=== PATIENT | female | born 1945 | race Caucasian/White ===

== ENCOUNTER 2016-09-30 13:15 | Emergency (ER) | payer MEDICARE, MEDICAID ==
--- NOTE | 2016-09-30 15:03 | RAD ---
INDICATION: Intracranial injury COMPARISON: MRI brain April 07, 2014 TECHNIQUE: Noncontrast axial source images were acquired from the skull base to the vertex. FINDINGS: Ventricles/sulci: There is cortical atrophy with compensatory dilatation of the CSF spaces. Brain parenchyma: There is no acute focal parenchymal finding, evidence of intracranial mass, or intracranial mass effect. There is encephalomalacia in the left cerebral hemisphere as described previously consistent with a remote infarct. Intracranial hemorrhage:None. Extra-axial spaces: There are no abnormal extra axial fluid collections or evidence of extra-axial mass. Calvarium: There is no calvarial fracture or other calvarial abnormality. Scalp: There is no evidence of scalp or extracalvarial soft tissue abnormality. Paranasal sinuses/mastoid: The paranasal sinuses and mastoid air cells are clear. Other: None. IMPRESSION: NO ACUTE INTRACRANIAL FINDINGS. REMOTE LEFT HEMISPHERIC CVA.
[2016-09-30 15:12] LABS: Hematocrit 44 % (35-47); Hemoglobin 14.3 g/dl (12.0-16.0); Mean Corpuscular HGB Conc 33 g/dl (31-36); Mean Corpuscular Hemoglobin 31 pg (27-31); Mean Corpuscular Volume 96 fL (80-97); Mean Platelet Volume 7 um3 (7.4-10.4); Red Cell Distribution Width 13 % (10.5-15); White Blood Count 16.4 10^3/ul (3.5-10.8)
[2016-09-30 15:30] LABS: Albumin 4.4 g/dL (3.2-5.2); BUN/Creatinine Ratio 16.3 (8-20); Calcium 9.5 mg/dL (8.6-10.3); EGFR African American 83.2 (>60); EGFR Non-African American 64.7 (>60); Globulin 2.9 g/dL (2-4); Magnesium 2.4 mg/dL (1.9-2.7); Potassium 3.9 mmol/L (3.5-5.0); Total Bilirubin 0.4 mg/dL (0.2-1.0); Total Protein 7.3 g/dL (6.4-8.9)
[2016-09-30 15:48] LABS: TSH (Thyroid Stimulating Horm) 1.88 mcIU/mL (0.34-5.60)
[2016-09-30] MEDS ORDERED: ALPRAZolam TAB* 0.5 MG PO ONE (16:02)
[2016-09-30 16:47] VITALS: BP 126/71
--- NOTE | 2016-09-30 17:24 | ED ---
Jenny Lynn Michael, scribed for Jakub Lundberg MD on 09/30/16 at 1420 . Adult Trauma - HPI Summary HPI Summary: 71 y/o female was BIBA to the ED after a unwitnessed fall that happened today at 1300. The pt's was bedside and reports that she had head trauma and hit her head on a table. The pt c/o diffuse MEEHAN. She presents with a right forehead laceration, right sided skin tear on her neck, and right occipital cephalohematoma. The pt cannot recall the fall. The PMHx is significant for dementia and CVA with resulting right sided deficits. - History of Current Complaint Chief Complaint: EDHeadInjury Stated Complaint: FALL Time Seen by Provider: 09/30/16 13:46 Hx Obtained From: Patient, Family/Dental Hygiene Instructor, EMS, Medical Records Hx From Patient Unobtainable Due To: Dementia Mechanism of Injury: Fall Loss of Consciousness: unsure Onset/Duration: Started Minutes Ago Onset of Pain: Immediate Onset Severity: Moderate Current Severity: Moderate Location: Head, Neck Associated Signs & Symptoms: Positive: Memory Loss, Other: - cephalohematoma, skin tear, and laceration - Allergy/Home Medications Allergies/Adverse Reactions: Allergies Allergy/AdvReac Type Severity Reaction Status Date / Time No Known Allergies Allergy Verified 12/14/14 10:25 PMH/Surg Hx/FS Hx/Imm Hx Endocrine/Hematology History: Denies: Hx Anticoagulant Therapy, Hx Diabetes Cardiovascular History: Denies: Hx Hypertension, Hx Pacemaker/ICD Sensory History: Denies: Hx Hearing Aid Neurological History: Reports: Hx CVA - with right sided deficits, Hx Dementia Psychiatric History: Reports: Hx Panic Disorder - ANXIETY - Surgical History Surgery Procedure, Year, and Place: APPENDECTOMY. DVT-GREEN FIELD FILTER, [facility] 05/03(1.5 T ONLY ) Infectious Disease History: No Infectious Disease History: Denies: Traveled Outside the [place] in Last 30 Days - Social History Occupation: Retired Lives: With Family Alcohol Use: None Substance Use Type: Reports: None Smoking Status (MU): Never Smoked Tobacco Review of Systems Negative: Fever Positive: Other - laceration. skin tear. cephalohematoma. Neurological: Other - memory loss. All Other Systems Reviewed And Are Negative: Yes Physical Exam Triage Information Reviewed: Yes Vital Signs On Initial Exam: Initial Vitals Temp Pulse Resp BP Pulse Ox 97.9 F 83 18 126/74 98 09/30/16 13:33 09/30/16 13:33 09/30/16 13:33 09/30/16 13:33 09/30/16 13:33 Vital Signs Reviewed: Yes Appearance: Positive: Well-Appearing, No Pain Distress Skin: Positive: Other - skin tear-right side of neck Head/Face: Positive: Scalp - right forehead laceration and, Cephalohematoma - right sided occipital Eyes: Positive: Normal ENT: Positive: Normal ENT inspection Neck: Positive: Supple, Nontender Respiratory/Lung Sounds: Positive: Clear to Auscultation, Breath Sounds Present Cardiovascular: Positive: RRR Abdomen Description: Positive: Nontender, Soft Bowel Sounds: Positive: Present Musculoskeletal: Positive: Normal Neurological: Positive: Normal Psychiatric: Positive: Affect/Mood Appropriate - [place] Coma Scale Coma Scale Total: 14 Procedures - Laceration/Wound Repair 1 Location: face Description: Linear Length, Depth and Shape: 1 cm Betadine Prep?: Yes Closure: Tamara #__ - 2 Diagnostics - Vital Signs Vital Signs Temp Pulse Resp BP Pulse Ox 09/30/16 13:33 97.9 F 83 18 126/74 98 - Laboratory Lab Results: Lab Results 09/30/16 09/30/16 09/30/16 Range/Units 15:04 15:04 15:04 WBC 16.4 H (3.5-10.8) 10^3/ul RBC 4.60 (4.0-5.4) 10^6/ul Hgb 14.3 (12.0-16.0) g/dl Hct 44 (35-47) % MCV 96 (80-97) fL MCH 31 (27-31) pg MCHC 33 (31-36) g/dl RDW 13 (10.5-15) % Plt Count 334 (150-450) 10^3/ul MPV 7 L (7.4-10.4) um3 Neut % (Auto) 90.5 H (38-83) % Lymph % (Auto) 5.3 L (25-47) % [place] % (Auto) 3.6 (1-9) % Eos % (Auto) 0.2 (0-6) % Baso % (Auto) 0.4 (0-2) % Absolute Neuts (auto) 14.8 H (1.5-7.7) 10^3/ul Absolute Lymphs (auto) 0.9 L (1.0-4.8) 10^3/ul Absolute Monos (auto) 0.6 (0-0.8) 10^3/ul Absolute Eos (auto) 0 (0-0.6) 10^3/ul Absolute Basos (auto) 0.1 (0-0.2) 10^3/ul Absolute Nucleated RBC 0 10^3/ul Nucleated RBC % 0 Sodium 138 (133-145) mmol/L Potassium 3.9 (3.5-5.0) mmol/L Chloride 103 (101-111) mmol/L Carbon Dioxide 28 (22-32) mmol/L Anion Gap 7 (2-11) mmol/L BUN 14 (6-24) mg/dL Creatinine 0.86 (0.51-0.95) mg/dL Est GFR ( Amer) 83.2 (>60) Est GFR (Non-Af Amer) 64.7 (>60) BUN/Creatinine Ratio 16.3 (8-20) Glucose 103 H (70-100) mg/dL Lactic Acid 1.0 (0.5-2.0) mmol/L Calcium 9.5 (8.6-10.3) mg/dL Magnesium 2.4 (1.9-2.7) mg/dL Total Bilirubin 0.40 (0.2-1.0) mg/dL AST 21 (13-39) U/L ALT 10 (7-52) U/L Alkaline Phosphatase 88 (34-104) U/L Troponin I 0.00 (<0.04) ng/mL Total Protein 7.3 (6.4-8.9) g/dL Albumin 4.4 (3.2-5.2) g/dL Globulin 2.9 (2-4) g/dL Albumin/Globulin Ratio 1.5 (1-3) TSH 1.88 (0.34-5.60) mcIU/mL Result Diagrams: 09/30/16 15:04 09/30/16 15:04 Lab Statement: Any lab studies that have been ordered have been reviewed, and results considered in the medical decision making process. - CT Brain CT CT Interpretation: No Acute Changes - NO ACUTE INTRACRANIAL FINDINGS. REMOTE LEFT HEMISPHERIC CVA. CT Interpretation Completed By: Radiologist - EKG EK EKG Rhythm: Sinus Bradycardia Ectopy: PVCs EKG Interpretation: diffuse nonspecific changes Adult Trauma Course/Dx - Course Course Of Treatment: The cause of Ms. Rousseau fall is unclear therefore a syncopal W/U was obtained and negative. CT brain was also negative for acute injury. She would not tolerate a careful closure of her forehead laceration but I was able to prep her a bit and put two tamara in. - Diagnoses Provider Diagnoses: Skin tear, Head injury, Facial laceration Discharge - Discharge Plan Condition: Stable Disposition: HOME Patient Education Materials: Head Injury (ED), Facial Laceration (ED) Referrals: Angel Luis Mart MD [Primary Care Provider] - Additional Instructions: The tamara will be taken out in one week. Please return to the ED if your symptoms worsen. The documentation as recorded by the Jenny roberto Michael accurately reflects the service I personally performed and the decisions made by , Jakub Lundberg MD.
== END 2016-09-30 16:45 | disposition home or self-care (01) ==
LOC: ED 13:15
DX: S01.81XA Laceration without foreign body of other part of head, initial encounter (principal); S11.91XA Laceration without foreign body of unspecified part of neck, initial encounter; S06.2X0A Diffuse traumatic brain injury without loss of consciousness, initial encounter; F03.90 Unspecified dementia, unspecified severity, without behavioral disturbance, psychotic disturbance, mood disturbance, and anxiety; W01.190A Fall on same level from slipping, tripping and stumbling with subsequent striking against furniture, initial encounter; Y93.9 Activity, unspecified; Y92.9 Unspecified place or not applicable
CPT/HCPCS: 12011; 36415; 70450; 80053; 83605; 83735; 84443; 84484; 85025; 93005; 99283; A9270-GY

== ENCOUNTER 2018-02-13 18:14 | Inpatient (IN) | payer MEDICARE, MEDICAID ==
--- NOTE | 2018-02-13 18:34 | ED ---
Neurological HPI - HPI Summary HPI Summary: 72 y/o female BIBA c/o multiple seizures today. PMHx seizures, 2008 hemorrhagic stroke. Pt has been under palliative care or udner a week. Decreased appetite starting four days ago. Intermittent bright yellow diarrhea for 2 days. PMHx dementia. Pt ell twice yesterday. - History of Current Complaint Chief Complaint: EDSeizure Stated Complaint: SEIZURES/AMS Hx Obtained From: Patient, Family/Embedded Software Engineer - daughter Onset/Duration: Sudden Onset Neurological Deficit Location: Generalized Pain Intensity: 0 Seizure Character: Generalized Aggravating: Nothing Alleviating: Nothing Associated Signs and Symptoms: Positive: Decreased Oral Intake, Diarrhea - Allergy/Home Medications Allergies/Adverse Reactions: Allergies Allergy/AdvReac Type Severity Reaction Status Date / Time No Known Allergies Allergy Verified 12/14/14 10:25 Home Medications: Home Medications Citalopram TAB* [CeleXA TAB*] 20 mg PO QAM 02/13/18 [History Confirmed 02/13/18] Gabapentin TAB(NF) [Neurontin 600 mg TAB(NF)] 600 mg PO BID 02/13/18 [History Confirmed 02/13/18] Lorazepam INTESNOL CONC.(NF) [Lorazepam Intensol (NF)] 2 mg PO Q6HR PRN [History Confirmed 02/13/18] QUEtiapine TAB* [Seroquel 25 MG TAB*] 25 mg PO BEDTIME 02/13/18 [History Confirmed 02/13/18] Sertraline* [Zoloft*] 25 mg PO DAILY 02/13/18 [History Confirmed 02/13/18] PMH/Surg Hx/FS Hx/Imm Hx Previously Healthy: No Endocrine/Hematology History: Denies: Hx Anticoagulant Therapy, Hx Diabetes Cardiovascular History: Denies: Hx Hypertension, Hx Pacemaker/ICD Sensory History: Denies: Hx Hearing Aid Neurological History: Reports: Hx CVA - with right sided deficits, Hx Dementia Psychiatric History: Reports: Hx Panic Disorder - ANXIETY - Surgical History Surgery Procedure, Year, and Place: APPENDECTOMY. DVT-GREEN FIELD FILTER, [facility] 05/03(1.5 T ONLY ) Infectious Disease History: Unable to Obtain/Confirm Infectious Disease History: Denies: Traveled Outside the [place] in Last 30 Days - Social History Alcohol Use: None Substance Use Type: Reports: None Smoking Status (MU): Never Smoked Tobacco Review of Systems Constitutional: Negative Eyes: Negative ENT: Negative Cardiovascular: Negative Respiratory: Negative Positive: Diarrhea, Other - decreased oral intake Genitourinary: Negative Musculoskeletal: Negative Skin: Negative Neurological: Other - seizures Psychological: Normal All Other Systems Reviewed And Are Negative: Yes Physical Exam - Summary Physical Exam Summary: Limited physical. Appearance: Alert, conversive, nontoxic appearing, thin Skin: Warm, dry, no mottling, no rashes, no contusions. Pale. HEENT: EOMI, PERRL, dry mucous membranes Neck: No masses on the neck, supple Respiratory: Clear to auscultation, breath sounds present, no rales, no rhonchi , no wheezes Cardiovascular: RRR, pulses are symmetrical in both lower and upper extremities Abdomen: Soft, non-tender Bowel Sounds: Present Musculoskeletal: No CVA tenderness, no obvious deformity, moving all extremities in a grossly normal manner Neurological: Pt is arousable, moving in a symmetric fashion. Psychiatric: Pt is not conversive, slightly aggressive. Triage Information Reviewed: Yes Vital Signs On Initial Exam: Initial Vitals Temp Pulse Resp BP Pulse Ox 98 F 117 28 138/72 96 02/13/18 18:26 02/13/18 18:26 02/13/18 18:26 02/13/18 18:26 02/13/18 18:26 Vital Signs Reviewed: Yes Diagnostics - Vital Signs Vital Signs Temp Pulse Resp BP Pulse Ox 02/13/18 18:26 98 F 117 28 138/72 96 - Laboratory Result Diagrams: 02/13/18 18:56 02/13/18 18:56 Lab Statement: Any lab studies that have been ordered have been reviewed, and results considered in the medical decision making process. - Radiology CXR Xray Interpretation: No Acute Changes - No PNA Radiology Interpretation Completed By: ED Physician Course/Dx - Course Assessment/Plan: Multiple seizures today. PMHx seizures and hemorrhagic stroke.Spoke with Dr. Abernathy, who says to give Ativan 2mg, load with Depakote and admit. Spoke with Dr. Schaffer at 19:40, who accepted the pt for admission. CXR shows no PNA. - Diagnoses Provider Diagnoses: Seizures, Dehydration, Diarrhea Discharge - Sign-Out/Discharge Documenting (check all that apply): Patient Departure - Discharge Plan Condition: Stable Disposition: ADMITTED TO [facility] Referrals: Angel Luis Mart MD [Primary Care Provider] - - Attestation Statements Document Initiated by Scribe: Yes Documenting Scribe: Ubaldo Rosario Provider For Whom Scribe is Documenting (Include Credential): Silva Mosqueda MD Scribe Attestation: Ubaldo Lynn, scribed for Silva Mosqueda MD on 02/13/18 at 2054.
[2018-02-13] MEDS ORDERED: LORazepam INJ* 2 MG/ML 1 ML VIAL ONE (18:43)
[2018-02-13] MEDS ORDERED: LORazepam INJ* 2 MG/ML 1 ML VIAL IV PUSH ONE (18:46)
[2018-02-13] MEDS ORDERED: Valproic Acid IV(*) 100 MG/ML 5 ML VIAL (500 MG) IVPB ONE (18:51)
[2018-02-13 19:03] LABS: ABS Basophils 0 10^3/ul (0-0.2); ABS Eosinophils 0 10^3/ul (0-0.6); ABS Lymphocytes 0.7 10^3/ul (1.0-4.8); ABS Monocytes 0.7 10^3/ul (0-0.8); ABS Neutrophils 12.2 10^3/ul (1.5-7.7); ABS Nucleated RBC 0 10^3/ul; Eosinophil % 0.1 % (0-6); Hematocrit 37 % (35-47); Hemoglobin 12.8 g/dl (12.0-16.0); Lymphocyte % 5.3 % (25-47); Mean Corpuscular HGB Conc 34 g/dl (31-36); Mean Corpuscular Hemoglobin 33 pg (27-31); Mean Corpuscular Volume 95 fL (80-97); Mean Platelet Volume 6.7 um3 (7.4-10.4); Nucleated Red Blood Cells % 0; Platelet Count 338 10^3/ul (150-450); Red Blood Count 3.94 10^6/ul (4.00-5.40); Red Cell Distribution Width 13 % (10.5-15); White Blood Count 13.7 10^3/ul (3.5-10.8)
[2018-02-13 19:23] LABS: EGFR Non-African American 66.3 (>60)
[2018-02-13] MEDS ORDERED: VALPROIC ACID 1000 MG IV - ED ONCE IVPB ONE ×2 (20:00)
[2018-02-13] MEDS ORDERED: NS 0.9% 1000 ML* 1,000 ML IV ONE (20:43)
[2018-02-13] MEDS ORDERED: Acetaminophen TAB* 325 MG PO PRN (20:43)
[2018-02-13] MEDS ORDERED: Ondansetron INJ* 2 MG/ML VIAL IV PRN (20:43)
[2018-02-13] MEDS ORDERED: NS 0.9% 1000 ML* 1,000 ML IV SCH (20:45)
[2018-02-13] MEDS ORDERED: Iohexol 300* (CONTRAST) 10 ML SDV IV ONE (20:45)
--- NOTE | 2018-02-13 21:56 | RAD ---
EXAM: CT Head Without Intravenous Contrast CLINICAL HISTORY: 72 years old, female; Pain; Other: Seizure TECHNIQUE: Axial computed tomography images of the head/brain without intravenous contrast. All CT scans at this facility use at least one of these dose optimization techniques: automated exposure control; mA and/or kV adjustment per patient size (includes targeted exams where dose is matched to clinical indication); or iterative reconstruction. COMPARISON: BRAIN WO CT BRAIN WO 09/30/2016 2:38 PM FINDINGS: Brain: Large area of encephalomalacia left frontal lobe unchanged compared prior study. Mild periventricular and subcortical low attenuation without adjacent mass effect. No acute ischemic changes, extra axial fluid collections, intraparenchymal hemorrhage, or midline shift. Ventricles: The ventricles and extraventricular CSF spaces are widened although symmetrically positioned along the midline. Bones/joints: No acute fracture. No suspicious osseous lesions. Soft tissues: Normal. Vasculature: The vasculature demonstrates diffuse mild atherosclerotic calcification. Sinuses: Normal as visualized. Mastoid air cells: Normal as visualized. No mastoid effusion. IMPRESSION: 1. No acute intracranial abnormality. 2. Age-related atrophy and mild chronic small vessel ischemic disease. 3. Old left frontal lobe MCA territorial infarct.
--- NOTE | 2018-02-13 22:01 | RAD ---
EXAM: CT Abdomen and Pelvis With Intravenous Contrast CLINICAL HISTORY: 72 years old, female; Pain; Abdominal pain; Generalized; Patient HX: Pt has HX of dementia, unable to follow instructions or hold still; Additional info: Abd pain TECHNIQUE: Axial computed tomography images of the abdomen and pelvis with intravenous contrast. All CT scans at this facility use at least one of these dose optimization techniques: automated exposure control; mA and/or kV adjustment per patient size (includes targeted exams where dose is matched to clinical indication); or iterative reconstruction. Coronal and sagittal reformatted images were created and reviewed. CONTRAST: 72 mL of Omnipaque administered intravenously. COMPARISON: No relevant prior studies available. FINDINGS: Artifacts: Patient motion artifact mildly degrades evaluation. Lung bases: The visualized portions of the lung bases are normal. ABDOMEN: Liver: Normal. No masses. Portal and hepatic veins are patent. Gallbladder and bile ducts: Normal. No radiopaque calculi. No ductal dilation. Pancreas: Normal. No mass. No ductal dilation. Spleen: Normal. No splenomegaly. Adrenals: Normal. No mass. Kidneys and ureters: Several bilateral peripelvic simple renal cysts largest on the left measures 2.4 cm. No calculi or pelvocaliectasis. Stomach and bowel: Incompletely distended grossly normal stomach. Normal caliber small bowel. Distal colonic diverticula without adjacent inflammatory changes or associated wall thickening. PELVIS: Appendix: Normal caliber appendix without wall thickening or adjacent inflammation. Bladder: Thin-walled bladder with no focal nodularity, perivesicular stranding, or calcifications. Reproductive: Gas identified within the endometrial canal. Normal ovaries. ABDOMEN and PELVIS: Intraperitoneal space: Normal. No pneumoperitoneum. No ascities. Bones/joints: The spine demonstrates mild degenerative changes at multiple levels. Levocurvature mid lumbar spine. No fractures. No suspicious bone lesions. Soft tissues: Normal. No hernias. Vasculature: There is mild atherosclerotic calcification of the coronary arteries. The aorta demonstrates mild atherosclerotic calcification. Infrarenal IVC filter. No abdominal aortic aneurysm. Lymph nodes: Normal. No enlarged lymph nodes. IMPRESSION: 1. No CT findings to correlate with patient's symptomatology. 2. Endometrial canal gas with etiologies including a colo-uterine or entero-uterine fistula or widely patent cervix. 3. Peripelvic renal cysts. 4. Distal colonic diverticulosis.
--- NOTE | 2018-02-13 22:27 | HP ---
CC: Dr. Angel Luis Mart; Dr. Lo; Dr. Sepulveda * HISTORY AND PHYSICAL: DATE OF ADMISSION: 02/13/18 PRIMARY CARE PROVIDER: Angel Luis Mart MD ATTENDING PHYSICIAN WHILE IN THE HOSPITAL: David Schaffer MD * (report dictated by Erik Pina NP) CONSULTING NEUROLOGIST: Lenard Sepulveda MD CHIEF COMPLAINT: 1. Seizure. 2. Altered mental status. HISTORY OF PRESENT ILLNESS: Mrs. Rousseau is a 72-year-old female patient with a history of advanced dementia. She is essentially nonverbal. She does not follow commands. She is really not able to give any history. The history is obtained from discussion with the daughter. Daughter states that the patient has had a progressive decline over the last 6 months, however, she has noted over the last 5 days, the patient has had a worsening decline and the fact that she has not been eating and not taking any of her pills. She has been having diarrhea. There has been no complaints of pain, although the patient would be unable to complain of pain given her advanced dementia. There has been no reports of fever, there has been no reports of coughing or aspiration. The daughter does concern that she has had trouble swallowing or just does not want to eat. She was concerned because she had not taken her seizure medications in about 3 days and brought her mother into the hospital for further evaluation and management. She came into the ED today. When she came in, she was extremely agitated, they were unable to get an EEG, but because of the fact that there is a concern for possible seizures, the altered mental status, and the fact that she has had a rapid decline in the last 5 days, we were asked to evaluate for admission. PAST MEDICAL HISTORY: Significant for: 1. Hyperlipidemia. 2. History of hemorrhagic CVA. 3. Depression. 4. Arthritis. 5. Dementia. 6. Seizures. PAST SURGICAL HISTORY: The patient has had an appendectomy. MEDICATIONS: Home medications according to the list provided include: 1. Lamictal 250 mg p.o. daily. 2. Seroquel 25 mg at bedtime. 3. Ativan 2 mg p.o. every 6 hours as needed. 4. Xanax 0.75 mg p.o. at bedtime as needed. 5. Celexa 20 mg p.o. q. a.m. 6. Neurontin 200 mg p.o. b.i.d. 7. Neurontin 300 mg in the morning. 8. Zoloft 25 mg p.o. daily. ALLERGIES TO MEDICATIONS: No known drug allergies. FAMILY HISTORY: The patient's mother in her 90s with dementia. The patient's father, according to the patient's daughter, at age 86 and had a history of gastric ulcers. SOCIAL HISTORY: The patient does not smoke. She does not drink. Surrogate decision maker is her daughter. REVIEW OF SYSTEMS: Unable to be obtained from the patient given her advanced dementia. PHYSICAL EXAMINATION GENERAL: At this time, Mrs. Rousseau is a 72-year-old female patient. She is sitting in the ED stretcher. She does not appear to be in any acute distress. Again, appears to be sleeping. VITAL SIGNS: Blood pressure 91/63, pulse of 89, respirations 18, O2 sat 95%, and temperature was 98. HEENT: Head: Atraumatic and normocephalic. Eyes: EOMs are intact. Sclerae anicteric and not pale. Throat: Oral mucosa appears to be dry. No oropharyngeal erythema. NECK: Supple. LUNGS: Clear to auscultation bilaterally. No wheezes, rales, or rhonchi. HEART: Sounds S1, S2. Regular rate and rhythm. No murmurs, rubs, or gallops. ABDOMEN: Soft. It was flat, there were bowel sounds, but there is tenderness in the left lower quadrant. EXTREMITIES: Pulses were 2+ throughout. She is moving all 4 extremities. NEUROLOGICAL: She is nonverbal. She awakens to herself only. She is moving all 4 extremities grossly. There is no gross focal deficits. SKIN: Grossly intact. DIAGNOSTIC STUDIES/LAB DATA: WBC is 13.7, RBC of 3.94, hemoglobin of 12.8, hematocrit 37, platelet count of 338. Sodium of 138, potassium is 3, chloride of 106, bicarb 19, BUN 12, creatinine of 0.84, glucose 118, calcium 9.1. Total bili is 0.5, AST 22, ALT 13, alk phos 62. Albumin 4.0. She had chest x-ray obtained today. Under my review, I did not appreciate any acute infiltrates. No pleural effusions. Old medical records were reviewed. ASSESSMENT AND PLAN: Mrs. Rousseau is a 72-year-old female patient, coming into the ED today with complaints of altered mental status. The patient's daughter said that she had a progressive worsening decline over the last 5 days. We were asked to evaluate for admission. She will be admitted under inpatient status for: 1. Altered mental status. Etiology is unclear. There could be an underlying infection. I am concerned because of the abdominal discomfort she is having. So, I did order a CT abdomen and pelvis. I also ordered a CT of the brain. However, the family does not want aggressive measures. They actually were pursuing hospice yesterday. Plan at this point would be to obtain CT imaging, if there is anything causing this acute change in her mentation, I certainly would treat her with antibiotics, will hydrate her, we will replace her electrolytes and will continue to follow. 2. Advanced dementia. Continue supportive care and continue meds as prescribed. She does have a component of delirium. We are going to do the CT of the brain to make sure there has not been any changes and because of the advanced dementia, I have ordered a palliative care and hospice care consults while in the hospital. 3. History of hyperlipidemia. Again at this point, continue with her meds as prescribed. 4. Depression. Continue supportive care. 5. History of cerebrovascular accident. Again with history of hemorrhagic cerebrovascular accident, we will continue to follow with her primary neurologist. 6. History of seizures. We will continue, because she has not taken her Lamictal, there was concern that she may have had seizures today. Dr. Sepulveda has been consulted, they were unable to perform an EEG, because she was very combative down here in the ER. She was loaded with valproic acid. We will go ahead and check her level in the morning and continue 250 q. 8 hours and I will continue to monitor. 7. DVT prophylaxis. I placed her on SCDs. 8. Code status. She is a DNR. 9. Fluids, electrolytes, and nutrition. If she is able to take p.o. she can have a regular diet. TIME SPENT: On the admission was 60 minutes, greater than half the time was spent [id number] with the patient, the other half time was spent going over the plan of care with the patient's family. I did discuss this with my attending, Dr. Schaffer, he is in agreement. ERIK PINA NP [id number]/[facility] #: [id number] MAN[facility] PSYCHIATRIC CENTERJacklyn
[2018-02-13] MEDS: KCL 10 MEQ/50 ML IVPREMIX* 10 MEQ/50 ML BAG IV SCH ×2 (22:46→23:53)
[2018-02-13 22:56] LABS: Urine Appearance Clear; Urine Blood 1+ (Negative); Urine Color Yellow; Urine Ketones Trace (Negative); Urine Protein 1+(30 mg/dL) (Negative); Urine Red Blood Cell 1+(3-5/hpf) (Absent); Urine Urobilinogen Negative (Negative); Urine White Blood Cell Trace(0-5/hpf) (Absent)
[2018-02-14] MEDS: KCL 10 MEQ/50 ML IVPREMIX* 10 MEQ/50 ML BAG IV SCH ×2 (01:02→02:23)
[2018-02-14] MEDS: Valproic Acid IV(*) 250 MG in NS 0.9% 100 ML* 100 ML IVPB SCH ×2 (03:30→13:30)
[2018-02-14] MEDS: LORazepam INJ* 2 MG/ML 1 ML VIAL IV PUSH PRN ×2 (04:48→15:05)
[2018-02-14 06:36] LABS: ABS Basophils 0 10^3/ul (0-0.2); ABS Eosinophils 0 10^3/ul (0-0.6); ABS Lymphocytes 1.7 10^3/ul (1.0-4.8); ABS Monocytes 0.7 10^3/ul (0-0.8); ABS Neutrophils 6.5 10^3/ul (1.5-7.7); ABS Nucleated RBC 0 10^3/ul; Eosinophil % 0.1 % (0-6); Hematocrit 33 % (35-47); Hemoglobin 11.6 g/dl (12.0-16.0); Mean Corpuscular HGB Conc 35 g/dl (31-36); Mean Corpuscular Hemoglobin 34 pg (27-31); Mean Corpuscular Volume 97 fL (80-97); Mean Platelet Volume 7.2 um3 (7.4-10.4); Nucleated Red Blood Cells % 0.1; Platelet Count 273 10^3/ul (150-450); Red Blood Count 3.45 10^6/ul (4.00-5.40); Red Cell Distribution Width 13 % (10.5-15); White Blood Count 8.9 10^3/ul (3.5-10.8)
[2018-02-14 06:46] LABS: INR 0.98 (0.77-1.02)
[2018-02-14 07:00] LABS: EGFR Non-African American 84.6 (>60)
--- NOTE | 2018-02-14 07:45 | RAD ---
HISTORY: ams COMPARISONS: July 31, 2011 VIEWS: 1: frontal portable view of the chest at 7:12 PM . The patient is obliqued to the left FINDINGS: LINES AND TUBES: None. CARDIOMEDIASTINAL SILHOUETTE: The cardiomediastinal silhouette is normal for portable technique. PLEURA: The costophrenic angles are sharp. No pleural abnormalities are noted. LUNG PARENCHYMA: The lungs are clear. ABDOMEN: The upper abdomen is clear. There is no subphrenic gas. BONES AND SOFT TISSUES: No bone or soft tissue abnormalities are noted. IMPRESSION: NO ACTIVE CARDIOPULMONARY DISEASE. R0
--- NOTE | 2018-02-14 08:14 | PN ---
Subjective Date of Service: 02/14/18 Interval History: Pt is seen today in her room for follow up. She is essentially non-verbal. She does at one point look at me and say what sounds like "doctor." Objective Active Medications: Acetaminophen (Tylenol Tab*) 650 mg PO Q4H PRN PRN Reason: FEVER/PAIN Sodium Chloride (Ns 0.9% 1000 Ml*) 1,000 mls @ 100 mls/hr IV PER RATE [facility]BER Last Admin: 02/13/18 22:40 Dose: 100 mls/hr Valproic Acid 250 mg/ Sodium (Chloride) 102.5 mls @ 205 mls/hr IVPB Q8H [facility] Last Admin: 02/14/18 03:30 Dose: 205 mls/hr Lorazepam (Ativan Inj*) 0.5 mg IV PUSH Q8H PRN PRN Reason: ANXIETY Last Admin: 02/14/18 04:48 Dose: 0.5 mg Ondansetron HCl (Zofran Inj*) 4 mg IV Q6H PRN PRN Reason: NAUSEA Vital Signs - 8 hr 02/14/18 02/14/18 02/14/18 03:13 04:48 05:50 Temperature 99.4 F Pulse Rate 90 Respiratory 18 20 18 Rate Blood Pressure 93/56 (mmHg) O2 Sat by Pulse 100 Oximetry 02/14/18 02/14/18 07:17 07:19 Temperature 99.5 F Pulse Rate 33 60 Respiratory 18 Rate Blood Pressure 88/51 101/60 (mmHg) O2 Sat by Pulse 84 94 Oximetry Oxygen Devices in Use Now: None Appearance: Elderly female lying in bed, trying to sit up, NAD Eyes: No Scleral Icterus Ears/Nose/Mouth/Throat: Mucous Membranes Moist Respiratory: Symmetrical Chest Expansion and Respiratory Effort, Clear to Auscultation - anteriorly Cardiovascular: NL Sounds; No Murmurs; No JVD, RRR, No Edema Abdominal: - - BS+ soft, ND, she states "ouch" when I palpate her LLQ Extremities: No Clubbing, Cyanosis Skin: No Nodules or Sclerosis Neurological: - - agiatated, begins to cry as I am leaving the room Result Diagrams: 02/14/18 06:07 02/14/18 06:08 Assess/Plan/Problems-Billing Ms Rousseau is a 72 yo F who has a h/o advanced dementia, CVA about 10 years ago and a h/o seizures who presented to the ER after having several seizures at home after not taking her antiepileptics for several days with decreased oral intake and diarrhea. - Patient Problems (1) Seizures Current Visit: Yes Status: Acute Code(s): R56.9 - UNSPECIFIED CONVULSIONS SNOMED Code(s): 28857234 Comment: Pt reportedly had 6-7 seizures at home prior to presenting to the ER. In the ER she was observed to have a 15 sec seizure. She has been started on valproic acid. Neurology consult pending for today. Will see if she starts eating. (2) Dementia Current Visit: Yes Status: Acute Code(s): F03.90 - UNSPECIFIED DEMENTIA WITHOUT BEHAVIORAL DISTURBANCE SNOMED Code(s): 18045571 Comment: Pt reportedly has had a significant decline in her functional status per her daughter. This has been over the last 6 months but more acutely over the 5 days prior to admission. ? decline secondary to dehydration ( specific gravity of urine was high at 1.050) from diarrhea and not eating well. Will continue to hydrate pt and monitor mental status. (3) Diarrhea Current Visit: Yes Status: Acute Code(s): R19.7 - DIARRHEA, UNSPECIFIED SNOMED Code(s): 74752415 Comment: Pt was reportedly having diarrhea at home. None documented here. CT scan abd/pelvis without any acute findings but air was noted in the endometrial canal raising the possibility of a colo-uterine vs entero-uterine fistual vs a widely patent cervix. I do not think the patient would tolerate a pelvic exam at this time to assess the cervix. Will discuss with pt's daughter about possible fistula and work up for that. Monitor for diarrhea. (4) DVT prophylaxis Current Visit: Yes Status: Acute Code(s): FBF4200 - SNOMED Code(s): 302884366 (5) DNR (do not resuscitate) Current Visit: Yes Status: Acute
--- NOTE | 2018-02-14 10:20 | CONS ---
CONSULTATION REPORT: DATE OF CONSULT: ADDENDUM: PROBLEM LIST: 5. Pseudobulbar affect. This patient has episodes where she inappropriately cries or laughs throughout the day. This correlates with the frontal lobe injury and dementia. If agreed by family, I recommend starting Nuedexta which may also help with her behavior. I will discuss this further with the patient 's daughter. [id number]/[facility] #: [id number] RONI
--- NOTE | 2018-02-14 12:34 | CONS ---
NEUROLOGICAL CONSULTATION: DATE OF CONSULT: 02/14/18. CONSULTING PROVIDER: Erik Pina NP REASON FOR CONSULT: Recurrent seizures and progressive dementia. History is mostly obtained reviewing the electronic medical records. I contacted the patient's daughter Tiara but there was no response this morning. The patient is inappropriate and is nonverbal due to neurodegenerative disorder. HISTORY OF PRESENT ILLNESS: Ms. Rousseau is a 72-year-old female with history of left frontal intraparenchymal hemorrhage complicated by epilepsy, severe aphasia of mixed type and mood disorder. She is on lamotrigine, gabapentin, citalopram and Zoloft. She is also taking Xanax and low dose Seroquel 25 mg at bedtime. I have reviewed Dr. Nay Lo's note from May 2017, when the patient was last seen in the clinic. The patient presented to [facility] yesterday via EMS due to failure to thrive and recurrent seizures. The patient apparently had 6 generalized convulsions each lasting from 30 seconds to 2 minutes. The patient has not been eating and not taking her medications. She is not having diarrhea. Daughter is concerned that the patient is having trouble swallowing. Also, there is a concern that the patient may be dehydrated , hence the change in her behavior. She was slightly agitated and aggressive yesterday and EEG was unable to be obtained. The patient apparently had a 15- second shaking episode of the right arm that the family stated that this is typical for her. There is no generalized convulsion seen since admission. This morning the patient refused to eat her breakfast. She is sitting comfortably, inappropriately smiling and laughing but at times crying. The patient's daughter is waiting for an evaluation for hospice care as she no longer can care for the patient at home. The patient was loaded on IV Depacon yesterday 1000 mg x1 and was continued on a dose of 250 mg IV every 8 hours for the treatment of possible status epilepticus/seizures. PAST MEDICAL HISTORY: 1. Dyslipidemia. 2. Hemorrhagic stroke involving the left frontal lobe. 3. Depression. 4. Arthritis. 5. 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 PAST SURGICAL HISTORY: Appendectomy. MEDICATIONS: 1. Lamotrigine 250 mg p.o. daily. 2. Seroquel 25 mg at bedtime. 3. Ativan 2 mg by mouth every 6 hours as needed. 4. Xanax 0.75 mg p.o. at bedtime as needed. 5. Celexa 20 mg p.o. in the morning. 6. Neurontin 200 mg p.o. twice daily and 300 in the morning. 7. Zoloft 25 mg p.o. daily. ALLERGIES: No known drug allergies. FAMILY HISTORY: Mother with dementia who at age 90, father did not have any stroke or seizures. SOCIAL HISTORY: There is no known history of tobacco use or alcohol use. REVIEW OF SYSTEMS: Unable to obtain due to the patient's baseline cognitive dysfunction. PHYSICAL EXAM: Vitals: Temperature 99.5, heart rate of 60, respiratory rate of 18, oxygen saturation of 94% on room air, blood pressure 101/60. General: Frail- appearing female in no acute distress. She is inappropriately laughing to the interviewer. Head is atraumatic, normocephalic. Eyes: Conjunctivae/ corneas are clear. Neck is supple and symmetrical. No carotid bruits. Lungs are clear to auscultation bilaterally. Cardiovascular: Regular rate and rhythm with normal S1, S2. Extremities: Normal range of motion with no cyanosis. Skin: No skin lesion or laceration. Psych: Inappropriate. Neurological Examination: Mental status: The patient is awake, but not alert or oriented. Seems like she has a component of receptive and expressive aphasia as she is blabbering and non-cynical. Cranial Nerves: Pupils, equal, round reactive to light. Extraocular muscles are intact. There is no facial asymmetry. I was able to assess her tongue and she stuck it out to the examiner spontaneously but I was unable to do so when requested that she stick out her tongue. It appears to be symmetric. There is increased rigidity in all 4 extremities but she is moving all extremities spontaneously. She did not follow commands. Reflexes: Right/left brachioradialis 1/1, biceps 2/2, triceps 2/2, patella 2/2, ankle 0/0, plantar mute bilaterally. Sensation seems to be intact as she yelled out when I examined the distal upper and lower extremities. Coordination and gait were not assessed as the patient does not follow command. DIAGNOSTIC STUDIES/LAB DATA: WBC 8.9, hemoglobin 11.6, hematocrit 33, platelet count 273. Sodium 141, potassium 4.3, chloride 113, creatinine 0.68. Urinalysis, no evidence of pyuria, valproic acid 61. The patient had a CT head without contrast which showed age related atrophy and mild chronic small vessel ischemic disease with an old left frontal lobe MCA territory infarction. ASSESSMENT AND PLAN: Ms. 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 The patient is refusing to take anything by mouth and the family is concerned about her dehydrated state. She has not had any seizures since admission and seems to be responding well to Depakote. 1. Suspected status epilepticus-the patient appears to be stable from the seizure standpoint at this point. She is not having any clinical events. It is very difficult to obtain an EEG without sedating her which will really not provide any significant information if we give her Ativan and pretty much suppress her EEG background. Monitor her liver function while on Depakote. The level seems to be therapeutic at 61. Lamotrigine level may increase when taken in combination of Depakote and therefore, we will order lamotrigine level to be obtained within the next few days. 2. Advanced dementia and history of left frontal intraparenchymal hemorrhage- the patient's family have decided on hospice care. Waiting on consultation. 3. Malnutrition-the patient does not appear to be dehydrated given her nearly normal chemistry panel. However, she is receiving IV fluids. Continue the IV fluids for now. Depakote should hopefully stimulate her appetite but she is refusing to eat this morning. I encouraged recurrent trials to try to feed the patient throughout the day. 4. Abdominal/pelvic pain-defer further management to the primary team. TIME SPENT: I spent a total of 70 minutes and greater than 50% that was spent directly reviewing the medical chart, obtaining history, examining the patient, and discussing the treatment plan with the patient's provider Dr. Ascencio. I will continue to follow. [id number]/[facility] #: [id number] [facility]OSPITALJacklyn
[2018-02-14] MEDS: Morphine ORAL CONCENTRATE* 5 MG/0.25 ML ORAL.SYRIN SL PRN ×2 (14:34→17:29)
[2018-02-14] MEDS: QUEtiapine TAB* 25 MG PO SCH (19:30)
[2018-02-14] MEDS: Divalproex Sprinkle CAP* 125 MG PO SCH (19:30)
--- NOTE | 2018-02-14 20:53 | EEG ---
ELECTROENCEPHALOGRAPHY: DATE OF STUDY: 02/14/18 - ROOM #404 ORDERED BY: Erik Pina NP. REASON FOR EEG: This EEG was obtained to evaluate for epileptiform abnormality in a patient who has history of epilepsy, left frontal lobe intraparenchymal hemorrhage, advanced dementia, and behavioral disturbance. The patient presented with seizure-like activity. MEDICATIONS: 1. Valproic acid. 2. Tylenol. 3. Ativan. 4. Zofran. REPORT: The majority of the background lacked organization or clearly defined anterior-posterior voltage and frequency gradients. There were intervals where there is a poorly sustained, but discernible posterior dominant rhythm with a rate of 6 Hz. Otherwise, the background consisted of mixed frequency slowing in the 3-6 Hz delta and theta range. Occasionally, there was broad-shaped spike , sharp and slow activity mostly seen in the left parietal and frontocentral region maximal at P3. There were no electrographic seizures. Hyperventilation and photic stimulation were not performed. CLINICAL IMPRESSION: This is an abnormal waking EEG due to the presence of diffuse, but reactive slowing with poorly sustained posterior dominant rhythm and intermittent, occasional broad-shaped spike and sharp and slow wave activity. These findings are consistent with a mild-moderate, diffuse nonspecific encephalopathy which can be seen in the setting of advanced dementia. The sharply contoured spike, sharp and slow wave activity are concerning for increased epileptogenic potentials emanating from the left parietal and frontocentral regions. There were no electrographic seizures. Clinical correlation is recommended. [id number]/[facility] #: [id number] MTDD
[2018-02-15] MEDS: LORazepam INJ* 2 MG/ML 1 ML VIAL IV PUSH PRN ×2 (00:22→15:33)
[2018-02-15] MEDS: Morphine ORAL CONCENTRATE* 5 MG/0.25 ML ORAL.SYRIN SL PRN ×4 (00:23→20:40)
--- NOTE | 2018-02-15 07:29 | PN ---
Subjective Date of Service: 02/15/18 Interval History: Pt is non-verbal. She smiles and pat my face when I introduce myself to her. Objective Active Medications: Acetaminophen (Tylenol Tab*) 650 mg PO Q4H PRN PRN Reason: FEVER/PAIN Divalproex Sodium (Depakote Sprinkle Cap*) 250 mg PO TID [facility] Last Admin: 02/14/18 19:30 Dose: 250 mg Sodium Chloride (Ns 0.9% 1000 Ml*) 1,000 mls @ 100 mls/hr IV PER RATE [facility] Last Admin: 02/13/18 22:40 Dose: 100 mls/hr Lorazepam (Ativan Inj*) 0.5 mg IV PUSH Q8H PRN PRN Reason: ANXIETY Last Admin: 02/15/18 00:22 Dose: 0.5 mg Morphine Sulfate (Morphine Oral Concentrate*) 5 mg SL Q2H PRN PRN Reason: PAIN Last Admin: 02/15/18 07:07 Dose: 5 mg Ondansetron HCl (Zofran Inj*) 4 mg IV Q6H PRN PRN Reason: NAUSEA Quetiapine Fumarate (Seroquel Tab*) 25 mg PO BEDTIME [facility] Last Admin: 02/14/18 19:30 Dose: 25 mg Vital Signs - 8 hr 02/15/18 02/15/18 02/15/18 00:22 00:23 05:17 Respiratory 16 16 16 Rate 02/15/18 07:07 Respiratory 18 Rate Oxygen Devices in Use Now: None Appearance: Elderly female lying in bed, NAD Eyes: No Scleral Icterus Ears/Nose/Mouth/Throat: Mucous Membranes Moist Respiratory: Symmetrical Chest Expansion and Respiratory Effort, Clear to Auscultation - anteriorly Cardiovascular: NL Sounds; No Murmurs; No JVD, RRR, No Edema Abdominal: NL Sounds; No Tenderness; No Distention Extremities: No Clubbing, Cyanosis Skin: No Rash or Ulcers Neurological: - - alert, non-verbal, child like this AM Result Diagrams: 02/14/18 06:07 02/14/18 06:08 Assess/Plan/Problems-Billing Ms Rousseau is a 72 yo F who has a h/o advanced dementia, CVA about 10 years ago and a h/o seizures who presented to the ER after having several seizures at home after not taking her antiepileptics for several days with decreased oral intake and diarrhea. - Patient Problems (1) Seizures Current Visit: Yes Status: Acute Code(s): R56.9 - UNSPECIFIED CONVULSIONS SNOMED Code(s): 87448069 Comment: On day of admission pt with presumed status epilepticus given recurrent seizures at home. Pt had EEG yesterday that was abnormal with slowing and sharp waves concerning for epileptic foci. Will continue depakote sprinkles , pt took her dose last evening, and lamictal. Lamictal level pending. Will discuss with Dr. Sepulveda about continuing both medications. Will continue to monitor for seizure activity. (2) Dementia Current Visit: Yes Status: Acute Code(s): F03.90 - UNSPECIFIED DEMENTIA WITHOUT BEHAVIORAL DISTURBANCE SNOMED Code(s): 98701289 Comment: Pt reportedly has had a significant decline in her functional status per her daughter. This has been over the last 6 months but more acutely over the 5 days prior to admission. Pt reportedly had not been eating/drinking at home for several days. She did not eat at any meal time yesterday but did take a her medications last evening. With her sudden drop of eating I question if she may be hospice appropriate. Her family states this past Monday she was evaluated by hospice and felt to not be a candidate however the patient has not proved that she will reliably eat. Will continue to monitor her oral intake. Social work to discuss with hospice options. May be looking for placement in a NH with comfort measures only. Morphine trialed for pain as pt frequently found grimmacing. (3) Diarrhea Current Visit: Yes Status: Acute Code(s): R19.7 - DIARRHEA, UNSPECIFIED SNOMED Code(s): 06672464 Comment: No diarrhea. Daughter does not report seeing any brown discharge from the vagina indicating a possible fistula. No work up per daughter as goal is comfort only. (4) DVT prophylaxis Current Visit: Yes Status: Acute Code(s): HTQ4030 - SNOMED Code(s): 638043122 Comment: Start SQ heparin (5) DNR (do not resuscitate) Current Visit: Yes Status: Acute
[2018-02-15] MEDS: Divalproex Sprinkle CAP* 125 MG PO SCH ×2 (08:55→14:37)
[2018-02-15] MEDS ORDERED: lamoTRIgine TAB(*) 100 MG PO SCH ×2 (09:00)
[2018-02-15] MEDS: D5W 1/2 NS KCl 20 Meq 1000 ML* 1,000 ML IV SCH (09:11)
[2018-02-15] MEDS: Heparin VIAL(*) 5000 UNITS/ML VIAL (FIVE THOUSAND) SUBCUT SCH ×2 (14:37→20:40)
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
[2018-02-15] MEDS: Valproic Acid IV(*) 250 MG in NS 0.9% 100 ML* 100 ML IVPB SCH (20:40)
[2018-02-15] MEDS: QUEtiapine TAB* 25 MG PO SCH (20:40)
[2018-02-16] MEDS: Valproic Acid IV(*) 250 MG in NS 0.9% 100 ML* 100 ML IVPB SCH ×2 (02:46→11:23)
[2018-02-16] MEDS: Heparin VIAL(*) 5000 UNITS/ML VIAL (FIVE THOUSAND) SUBCUT SCH ×3 (06:01→22:06)
--- NOTE | 2018-02-16 08:11 | PN ---
NEUROLOGY PROGRESS REPORT: DATE OF SERVICE: 02/15/18 PRIMARY PROVIDER: Dr. Shawna Ascencio CONSULTING PHYSICIAN: Dr. Anneliese Will from Palliative Care team. Neurology is following for the evaluation of seizures and for the patient's history of progressive end-stage dementia and nearly global phase related to previous stroke. SUBJECTIVE: The patient has not had any seizures. She is now refusing her anti - seizure medication when it was converted from IV to p.o. She did take the Depakote once yesterday. Lamotrigine was discontinued as she has not taken the medication for 5 days and there was a concern that if we restart the medication at her normal dose of 100 mg twice a day that she may develop Wilberto-Gulshan syndrome. Throughout the day, the patient continues to yell out loud and inappropriately. She is trying to get out of the chair. She does not participate with examiner. REVIEW OF SYSTEMS: Unable to perform due to the patient's cognitive disability. MEDICATIONS: 1. Acetaminophen 650 mg p.o. q.4 hours. 2. Heparin sodium 5000 units subcu every 8 hours as scheduled. 3. Lorazepam 0.5 mg IV push every 8 hours for anxiety. 4. Morphine sulfate 5 mg every 2 hours p.r.n. for pain. 5. Ondansetron 4 mg IV every 6 hours p.r.n. 6. Potassium chloride. 7. Quetiapine 25 mg at bedtime. 8. Valproic acid 250 mg IV every 8 hours as scheduled. PHYSICAL EXAMINATION: Vitals: Temperature of 98.3, pulse of 102, respiratory rate of 16, oxygen saturation 99, blood pressure 87/54. General: Frail-appearing female in mild distress. She is crying today to the interviewer. She is trying to get out of bed and she was repositioned a few times by the interviewer and daughter. Head is atraumatic and normocephalic. Extremities: She seems to have a normal range of motion of both upper and lower extremities. On examination, the patient is awake, but not alert and oriented. She has pseudobulbar affect and is inappropriately crying. She has a component of both receptive and expressive aphasia and has non-cynical speech. Pupils appeared to be equal, round, and reactive to light. Extraocular muscles are intact. She is able to track examiner. There is no facial asymmetry. She did not follow command. She appeared slightly frustrated when attempting to check her tone. ASSESSMENT AND PLAN: Ms. 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 She has not had any seizure activity while on Depakote. The patient unfortunately is refusing to take anything by mouth since last Monday. I reviewed the palliative care evaluation and apparently the patient does not meet criteria for hospice at this time. In regards to her seizures, we had to stop lamotrigine to prevent Sena- Gulshan syndrome since she stopped taking the medication last Monday (>5 days ago). One dose was given yesterday, but she does not seem like she is having any negative reaction. However, she seems to be tolerating Depacon through the IV. We will continue 250 mg every 8 hours. This hopefully will help with her agitation. I have ordered a Depakote level to be obtained tomorrow. Please add an AST/ALT with the labs and as well as get an ammonia level in the morning. Defer further evaluation to the primary team regarding her nutritional status. I had a long discussion with the patient's daughter today at bedside. Unfortunately, Tiara is completely distressed regarding the situation Ms. Rousseau is going through at this point. I reassured her that this is unfortunately a natural process that takes place in patients with dementia. Reassuringly, she is no longer having any recurrent seizures and her EEG yesterday did not show any evidence of electrographic seizures. Tiara would like to proceed with palliative/hospice care. However, criteria will need to be met. I did encourage her to consider a detention facility given her agitation and behavior is becoming very difficult to treat. She will think about this decision and will get back to us in the next few days. Dr. Laurel Lo will be on this weekend who knows the patient and the family very well and will be a great help in future decision-making. TIME SPENT: I spent a total of 30 minutes of which 50% was spent discussing the patient's care with Tiara as well as reviewing the labs and discussing the treatment plan with Dr. Ascencio. [id number]/[facility] #: [id number] [facility]OSPITALJacklyn
[2018-02-16] MEDS: D5W 1/2 NS KCl 20 Meq 1000 ML* 1,000 ML IV SCH (08:58)
[2018-02-16 09:26] LABS: EGFR Non-African American 84.6 (>60)
[2018-02-16] MEDS: Morphine ORAL CONCENTRATE* 5 MG/0.25 ML ORAL.SYRIN SL PRN (10:02)
--- NOTE | 2018-02-16 10:48 | PN ---
Subjective Date of Service: 02/16/18 Interval History: HOSPITALIST PROGRESS NOTE Patient seen and examined at bedside. Care reviewed and d/w Ale Beckham RN. She is non-verbal. Held my hand during interview, grimaced a little when moving in bed. As per daughter, PO intake continues to be 0. Family History: Unchanged from Admission Social History: Unchanged from Admission Past Medical History: Unchanged from Admission Objective Active Medications: Acetaminophen (Tylenol Tab*) 650 mg PO Q4H PRN PRN Reason: FEVER/PAIN Last Admin: 02/15/18 08:54 Dose: 650 mg Heparin Sodium (Porcine) (Heparin Vial(*)) 5,000 units SUBCUT Q8HR [facility] Last Admin: 02/16/18 06:01 Dose: 5,000 units Potassium Chloride/Dextrose (D5w 1/2 Ns Kcl 20 Meq 1000 Ml*) 1,000 mls @ 75 mls /hr IV PER RATE [facility] Last Admin: 02/16/18 08:58 Dose: 75 mls/hr Valproic Acid 250 mg/ Sodium (Chloride) 102.5 mls @ 205 mls/hr IVPB Q8H [facility] Last Admin: 02/16/18 02:46 Dose: 205 mls/hr Lorazepam (Ativan Inj*) 0.5 mg IV PUSH Q8H PRN PRN Reason: ANXIETY Last Admin: 02/15/18 15:33 Dose: 0.5 mg Lorazepam (Ativan Tab(*)) 1 mg SL Q8H [facility] Morphine Sulfate (Morphine Oral Concentrate*) 5 mg SL Q2H PRN PRN Reason: PAIN Last Admin: 02/16/18 10:02 Dose: 5 mg Ondansetron HCl (Zofran Inj*) 4 mg IV Q6H PRN PRN Reason: NAUSEA Quetiapine Fumarate (Seroquel Tab*) 25 mg PO BEDTIME [facility] Last Admin: 02/15/18 20:40 Dose: 25 mg Vital Signs - 8 hr 02/16/18 02/16/18 02/16/18 03:27 03:28 07:28 Temperature 98.6 F Pulse Rate 103 166 98 Respiratory 18 16 Rate Blood Pressure 110/96 103/61 (mmHg) O2 Sat by Pulse 96 78 99 Oximetry Oxygen Devices in Use Now: None Appearance: Elderly lady lying in bed in NAD. Eyes: No Scleral Icterus Ears/Nose/Mouth/Throat: Mucous Membranes Moist Neck: Trachea Midline Respiratory: Symmetrical Chest Expansion and Respiratory Effort, Clear to Auscultation Cardiovascular: RRR - Normal S1 and S2 Neurological: - - Alert and awake, non verbal Result Diagrams: 02/14/18 06:07 02/16/18 07:51 Assess/Plan/Problems-Billing Ms Rousseau is a 72 yo F who has a h/o advanced dementia, CVA about 10 years ago and a h/o seizures who presented to the ER after having several seizures at home after not taking her antiepileptics for several days with decreased oral intake and diarrhea. - Patient Problems (1) Seizures Comment: - On day of admission pt with presumed status epilepticus given recurrent seizures at home. Pt had EEG that was abnormal with slowing and sharp waves concerning for epileptic foci. - Not taking anything PO. - D/w Neurology - will continue Valproic acid IV for now, and plan for Ativan SL on discharge to SNF. (2) Dementia Comment: - Pt reportedly has had a significant decline in her functional status per her daughter over the last 6 months, but more acutely over the 5 days prior to admission. - Hospice evaluation appreciated - does not meet criteria for Hospice admission at this time, but may if she continues to decline. - D/w daughter - not interested in any invasive measures (including GI evaluation with EGD) - plan at this point is SNF with comfort care measures. If patient improves daughter would take her home, if continues to decline would qualify for Hospice then. (3) DNR (do not resuscitate) Status and Disposition: Inpatient.
[2018-02-16] MEDS ORDERED: LORazepam TAB(*) 1 MG SL SCH (11:00)
[2018-02-16] MEDS ORDERED: LORAZEPAM 2 MG/ML SL SCH (12:00)
[2018-02-16] MEDS: Divalproex Sprinkle CAP* 125 MG PO SCH ×2 (13:48→22:06)
[2018-02-16] MEDS ORDERED: Diazepam (ANTICONVULSANT)(*) 10 MG RECTAL.GEL PR SCH ×2 (14:00→21:00)
[2018-02-16] MEDS: LORazepam TAB(*) 1 MG SL PRN (18:14)
[2018-02-16] MEDS: QUEtiapine TAB* 25 MG PO SCH (22:06)
--- NOTE | 2018-02-17 01:52 | PN ---
NEUROLOGY PROGRESS NOTE: DATE OF SERVICE: 02/16/18 PRIMARY PROVIDER: Dr. Bharati Breaux. REASON FOR FOLLOWUP: Neurology is following for the evaluation of the seizure and advanced dementia. SUBJECTIVE: The patient had an uneventful night. She becomes delirious and agitated after 2 to 3 p.m. She does not sleep until 9 to 10 p.m. and then when she wakes up in the morning, she is a little more calm and cooperates with examiner. They are able to give her sublingual morphine today. The daughter is at bedside. REVIEW OF SYSTEMS: Unable to obtain as the patient cannot comprehend. The patient has not had any seizure-like activity since admission. MEDICATIONS: 1. Acetaminophen 650 mg p.o. every 4 hours. 2. Depakote Sprinkles 250 p.o. 3 times daily. 3. Heparin sodium 5000 units subcutaneously every 8 hours. 4. Lorazepam 1 mg sublingual as needed for anxiety. 5. Lorazepam 2 mg every 12 hours scheduled oral concentrated 2 mg/1 mL. 6. Morphine 5 mg sublingual every 2 hours as needed. 7. Ondansetron 4 mg IV every 6 hours as needed. 8. Quetiapine 25 mg p.o. at bedtime. PHYSICAL EXAMINATION: Vitals: Temperature 98.6, pulse of 98, respiratory rate of 16, oxygen saturation 99, blood pressure 103/61. The patient is elderly frail-appearing, demented female, who is confused and does not answer to questioning. She is in better mood today and she is inappropriately laughing at the examiner. Head is atraumatic and normocephalic. She seems to have range of motion on both upper and lower extremities. She has pseudobulbar affect. She has receptive and expressive aphasia with incomprehensible speech. Pupils appeared to be equal, round, and reactive to light. Extraocular muscles are intact. No facial asymmetry. She does not follow command. ASSESSMENT AND RECOMMENDATION: Ms. 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 She has not had any seizures while on Depakote. She was evaluated by the Palliative Care Team and was deemed not a candidate for hospice at this point. In regards to the seizure control, we have agreed to manage the patient with lorazepam oral concentrated 2 mg/1 mL solution since she is able to keep the sublingual morphine without any complications. Lorazepam should be given every 12 hours. I also recommended continuing the Depakote Sprinkles 250 mg 3 times daily. She has not had any seizures. Unfortunately, the patient will be slightly sedated. The daughter agrees to this plan. Another option would be to do rectal diazepam, but that is extremely uncomfortable for the patient and she will be agitated and could potentially be aggressive with caregivers. Tiara, the daughter, is extremely stressed out regarding the situation. She feels guilty for not continuing to care for her mother. She is concerned that her mother may have the potential to start eating again in the future as this may have been representatively informed by Dr. Will. I informed Tiara that we do not know if she would recover from this acute phase, but we do know that Mrs. Rousseau has progressive neurodegenerative problem that will continue to progress overtime and this could be potentially be her new baseline. I informed to her that she is still awake and has some motor function only because she has been receiving IV fluids during this whole process, but if she would be at a nursing facility and not eating or drinking, it would be days to weeks where she would naturally pass. Tiara is still interested in obtaining a Hospice consultation as an outpatient. I think this is a good idea. I reassured her that Dr. Laurel Lo will be following this weekend and she will come in and give us her input since she knows the patient well over the years. [id number]/[facility] #: [id number] RONI
[2018-02-17] MEDS ORDERED: LORAZEPAM 2 MG/ML PO SCH (02:00)
[2018-02-17] MEDS: Heparin VIAL(*) 5000 UNITS/ML VIAL (FIVE THOUSAND) SUBCUT SCH (05:58)
--- NOTE | 2018-02-17 09:11 | PN ---
Subjective Date of Service: 02/17/18 Interval History: HOSPITALIST PROGRESS NOTE Patient seen and examined at bedside. Care reviewed and d/w Frank Rob RN. As per RN, patient was able to take her meds crushed with apple sauce, delivered by syringe. Family History: Unchanged from Admission Social History: Unchanged from Admission Past Medical History: Unchanged from Admission Objective Active Medications: Acetaminophen (Tylenol Tab*) 650 mg PO Q4H PRN PRN Reason: FEVER/PAIN Last Admin: 02/15/18 08:54 Dose: 650 mg Divalproex Sodium (Depakote Sprinkle Cap*) 250 mg PO TID [facility] Last Admin: 02/16/18 22:06 Dose: 250 mg Heparin Sodium (Porcine) (Heparin Vial(*)) 5,000 units SUBCUT Q8HR [facility] Last Admin: 02/17/18 05:58 Dose: 5,000 units Lorazepam (Lorazepam Oral.Sammie Bulk Bot*) 2 mg PO Q12H [facility] Last Admin: 02/17/18 04:24 Dose: Not Given Lorazepam (Ativan Tab(*)) 1 mg SL Q6H PRN PRN Reason: ANXIETY Last Admin: 02/16/18 18:14 Dose: 1 mg Morphine Sulfate (Morphine Oral Concentrate*) 5 mg SL Q2H PRN PRN Reason: PAIN Last Admin: 02/16/18 10:02 Dose: 5 mg Ondansetron HCl (Zofran Inj*) 4 mg IV Q6H PRN PRN Reason: NAUSEA Quetiapine Fumarate (Seroquel Tab*) 25 mg PO BEDTIME [facility] Last Admin: 02/16/18 22:06 Dose: 25 mg Vital Signs - 8 hr 02/17/18 02:17 Temperature 98.7 F Pulse Rate 102 Respiratory 18 Rate Blood Pressure 97/63 (mmHg) O2 Sat by Pulse 98 Oximetry Oxygen Devices in Use Now: None Appearance: Elderly lady lying in bed in NADD, being cleaned up Eyes: No Scleral Icterus Ears/Nose/Mouth/Throat: Mucous Membranes Moist Neurological: - - Alert and awake, RAINEY Result Diagrams: 02/14/18 06:07 02/16/18 07:51 Assess/Plan/Problems-Billing Ms Rousseau is a 72 yo F who has a h/o advanced dementia, CVA about 10 years ago and a h/o seizures who presented to the ER after having several seizures at home after not taking her antiepileptics for several days with decreased oral intake and diarrhea. - Patient Problems (1) Seizures Comment: - On day of admission pt with presumed status epilepticus given recurrent seizures at home. Pt had EEG that was abnormal with slowing and sharp waves concerning for epileptic foci. - Not taking any food PO, but RN was able to give meds crushed in apple sauce with syringe. - D/w Neurology - continue Lorazepam SL and Divalproex sprinkles with apple sauce as tolerated. (2) Dementia Comment: - Pt reportedly has had a significant decline in her functional status per her daughter over the last 6 months, but more acutely over the 5 days prior to admission. - Hospice evaluation appreciated - does not meet criteria for Hospice admission at this time, but may if she continues to decline. - D/w daughter - not interested in any invasive measures (including GI evaluation with EGD) - plan at this point is SNF with comfort care measures. If patient improves daughter would take her home, if continues to decline would qualify for Hospice then. (3) DNR (do not resuscitate) Status and Disposition: Inpatient.
[2018-02-17] MEDS: Divalproex Sprinkle CAP* 125 MG PO SCH ×3 (10:15→20:57)
[2018-02-17] MEDS: LORAZEPAM 2 MG/ML PO SCH ×2 (11:28→20:58)
[2018-02-17] MEDS: Morphine ORAL CONCENTRATE* 5 MG/0.25 ML ORAL.SYRIN SL PRN ×2 (14:13→20:09)
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
[2018-02-17] MEDS: QUEtiapine TAB* 25 MG PO SCH (20:57)
[2018-02-18] MEDS: Divalproex Sprinkle CAP* 125 MG PO SCH ×3 (10:50→21:32)
[2018-02-18] MEDS: LORAZEPAM 2 MG/ML PO SCH ×2 (10:51→21:33)
--- NOTE | 2018-02-18 10:55 | PN ---
Subjective Date of Service: 02/18/18 Interval History: Daughter states that her mother is much more withdrawn and sedated than yesterday. Daughter states that the patient is more gaunt. Daughter states she is burping a lot and seems uncomfortable from it and that she is pulling at her left ear and is concerned about ear infection. Discussed with daughter that antibiotics would not be appropriate at this time if the primary goal is still to make patient comfortable and that morphine would be the most appropriate agent to control pain. Daughter agrees at this time, discussed the continued plan to seek alf placement for end of life care. Family History: Unchanged from Admission Social History: Unchanged from Admission Past Medical History: Unchanged from Admission Objective Active Medications: Acetaminophen (Tylenol Tab*) 650 mg PO Q4H PRN PRN Reason: FEVER/PAIN Last Admin: 02/15/18 08:54 Dose: 650 mg Divalproex Sodium (Depakote Sprinkle Cap*) 250 mg PO TID [facility] Last Admin: 02/17/18 20:57 Dose: 250 mg Lorazepam (Ativan Tab(*)) 1 mg SL Q6H PRN PRN Reason: ANXIETY Last Admin: 02/16/18 18:14 Dose: 1 mg Lorazepam (Lorazepam Oral.Sammie Bulk Bot*) 2 mg PO 0900,2100 [facility] Last Admin: 02/17/18 20:58 Dose: 2 mg Morphine Sulfate (Morphine Oral Concentrate*) 5 mg SL Q2H PRN PRN Reason: PAIN Last Admin: 02/17/18 20:09 Dose: 5 mg Quetiapine Fumarate (Seroquel Tab*) 25 mg PO BEDTIME [facility] Last Admin: 02/17/18 20:57 Dose: 25 mg Simethicone (Mylicon Liq*) 40 mg PO DAILY [facility] Vital Signs - 8 hr 02/18/18 03:44 Temperature 98.9 F Pulse Rate 97 Respiratory 16 Rate Blood Pressure 111/62 (mmHg) O2 Sat by Pulse 88 Oximetry Oxygen Devices in Use Now: None Appearance: Patient is a 72yo female who appears stated age and is sitting in the bed in NAD. Eyes: No Scleral Icterus, PERRLA Neck: Trachea Midline Respiratory: Symmetrical Chest Expansion and Respiratory Effort, Clear to Auscultation Cardiovascular: NL Sounds; No Murmurs; No JVD, - - Tachycardic Neurological: - - Non-Verbal Result Diagrams: 02/14/18 06:07 02/16/18 07:51 Microbiology and Other Data: Microbiology 02/13/18 22:30 Urine Culture - Final Urine No Growth (<1,000 CFU/mL) Assess/Plan/Problems-Billing Ms Rousseau is a 72 yo F who has a h/o advanced dementia, CVA about 10 years ago and a h/o seizures who presented to the ER after having several seizures at home after not taking her antiepileptics for several days with decreased oral intake and diarrhea. - Patient Problems (1) Dementia Current Visit: Yes Status: Acute Code(s): F03.90 - UNSPECIFIED DEMENTIA WITHOUT BEHAVIORAL DISTURBANCE SNOMED Code(s): 00804672 Comment: - Pt reportedly has had a significant decline in her functional status per her daughter over the last 6 months, but more acutely over the 5 days prior to admission. - Hospice evaluation appreciated - does not meet criteria for Hospice admission at this time, but may if she continues to decline. - D/w daughter - not interested in any invasive measures (including GI evaluation with EGD) - plan at this point is SNF with comfort care measures. If patient improves daughter would take her home, if continues to decline would qualify for Hospice then. - Comfort care instituted at this time. Morphine and Ativan PRN for comfort. (2) Seizures Current Visit: Yes Status: Acute Code(s): R56.9 - UNSPECIFIED CONVULSIONS SNOMED Code(s): 58410185 Comment: - On day of admission pt with presumed status epilepticus given recurrent seizures at home. Pt had EEG that was abnormal with slowing and sharp waves concerning for epileptic foci. - Not taking any food PO, but RN was able to give meds crushed in apple sauce with syringe. - D/w Neurology - continue Lorazepam SL and Divalproex sprinkles with apple sauce as tolerated. (3) DNR (do not resuscitate) Current Visit: Yes Status: Acute (4) DVT prophylaxis Current Visit: Yes Status: Acute Code(s): KTD2871 - SNOMED Code(s): 742442525 Comment: - Discontinued SCDs for comfort. Status and Disposition: Inpatient. Comfort Care with plan for SNF for end of life care.
[2018-02-18 11:15] VITALS: BP 108/60
[2018-02-18] MEDS: Simethicone LIQ* 40 MG/0.6 ML UD ORAL SYRINGE PO SCH (14:57)
[2018-02-18] MEDS: Morphine ORAL CONCENTRATE* 5 MG/0.25 ML ORAL.SYRIN SL PRN ×2 (17:47→20:26)
[2018-02-18] MEDS: QUEtiapine TAB* 25 MG PO SCH (21:32)
--- NOTE | 2018-02-18 21:50 | PN ---
PROGRESS NOTE: DATE OF SERVICE: 02/18/18 INTERVAL HISTORY: Family is at bedside and has noted less agitated efforts to get out of bed. The patient has not verbalized any desire for nutrition. She appears more relaxed. There have been no seizures. MEDICATIONS: Medication list was reviewed and she continues to occasionally take Depakote Sprinkle in some apple sauce 250 mg p.o. t.i.d. and they have been able to give her lorazepam 2 mg p.o. b.i.d.. Sometimes the Depakote has been refused. She did receive 1 dose of morphine last night for agitation. PHYSICAL EXAMINATION: Most recent vitals include a temperature of 98.5, heart rate 93 and regular, respiratory rate 18, saturation 99%, blood pressure 108/ 60. She had regular cardiac rhythm. Her lungs were clear to auscultation. There was no carotid bruit. Any attempts to examine arms and legs, the patient was trying to move gently away from the examiner. She overall appeared much more relaxed than she had in the past. IMPRESSION AND PLAN: A 72-year-old woman with history of brain hemorrhage complicated by epilepsy with continued progressive decline over years, more precipitous recently with behavioral problems in the last 18 months, worsening over the last 6 months and most recently refusing to eat or drink. This resulted in symptoms consistent with status epilepticus when she did not take her seizure medications, resulting in admission and changing seizure medications to formulations that could be given IV. In transition to medications that can be given as an outpatient, thus far, they have been able to get lorazepam in via syringe and occasionally Depakote. We are trying to avoid rectal diazepam, which would be very uncomfortable. This is part of a very long decline. At this point, family is opting for comfort care. [facility] is aware of case; their input and help in the future is appreciated. With further significant weight loss that meets their criteria, they should be contacted. I will be speaking to the hospitalist team regarding repeat weight prior to discharge. half-way placement is being looked out in the interim. TIME SPENT: Over an half hour was spent in direct [id number] patient care, over 50% of the time was spent in education and counseling regarding clinical course, diagnosis, differential diagnosis, decline, current medications. At today's visit, she was accompanied by not only her daughter but also her and we talked at length about her clinical course over the years, the progressive loss of her ability to function over time, and difficulty in the changes that they have seen over the years. [id number]/[facility] #: [id number] RONI
[2018-02-19] MEDS: Divalproex Sprinkle CAP* 125 MG PO SCH ×3 (09:06→22:07)
[2018-02-19] MEDS: Simethicone LIQ* 40 MG/0.6 ML UD ORAL SYRINGE PO SCH (09:10)
[2018-02-19] MEDS: LORAZEPAM 2 MG/ML PO SCH ×2 (09:11→21:58)
--- NOTE | 2018-02-19 10:08 | PN ---
Subjective Date of Service: 02/19/18 Interval History: HOSPITALIST PROGRESS NOTE Patient seen and examined at bedside. More lethargic today. PO intake continues to be 0. Appears comfortable at this time, but daughter is concerned she may have pain. Family History: Unchanged from Admission Social History: Unchanged from Admission Past Medical History: Unchanged from Admission Objective Active Medications: Acetaminophen (Tylenol Tab*) 650 mg PO Q4H PRN PRN Reason: FEVER/PAIN Last Admin: 02/15/18 08:54 Dose: 650 mg Divalproex Sodium (Depakote Sprinkle Cap*) 250 mg PO TID [facility] Last Admin: 02/19/18 09:06 Dose: 250 mg Lorazepam (Ativan Tab(*)) 1 mg SL Q6H PRN PRN Reason: ANXIETY Last Admin: 02/16/18 18:14 Dose: 1 mg Lorazepam (Lorazepam Oral.Sammie Bulk Bot*) 2 mg PO 0900,2100 [facility] Last Admin: 02/19/18 09:11 Dose: 2 mg Morphine Sulfate (Morphine Oral Concentrate*) 5 mg SL Q2H PRN PRN Reason: PAIN Last Admin: 02/18/18 20:26 Dose: 5 mg Quetiapine Fumarate (Seroquel Tab*) 25 mg PO BEDTIME [facility] Last Admin: 02/18/18 21:32 Dose: 25 mg Simethicone (Mylicon Liq*) 40 mg PO DAILY [facility] Last Admin: 02/19/18 09:10 Dose: 40 mg Vital Signs - 8 hr 02/19/18 08:00 Respiratory 12 Rate Oxygen Devices in Use Now: None Appearance: Elderly frail lady lying in bed in [facility]. Eyes: No Scleral Icterus Ears/Nose/Mouth/Throat: - - Dry MM Neurological: - - Lethargic, but moving in bed Result Diagrams: 02/14/18 06:07 02/16/18 07:51 Assess/Plan/Problems-Billing Ms Rousseau is a 72 yo F who has a h/o advanced dementia, CVA about 10 years ago and a h/o seizures who presented to the ER after having several seizures at home after not taking her antiepileptics for several days with decreased oral intake and diarrhea. - Patient Problems (1) Seizures Comment: - On day of admission pt with presumed status epilepticus given recurrent seizures at home. Pt had EEG that was abnormal with slowing and sharp waves concerning for epileptic foci. - Not taking any food PO, but RN was able to give meds crushed in apple sauce with syringe. - D/w Neurology - continue Lorazepam SL and Divalproex sprinkles with apple sauce as tolerated. (2) Dementia Comment: - Pt reportedly has had a significant decline in her functional status per her daughter over the last 6 months, but more acutely over the 5 days prior to admission. - Hospice evaluation appreciated - does not meet criteria for Hospice admission at this time, but may if she continues to decline. - D/w daughter - not interested in any invasive measures (including GI evaluation with EGD) - plan at this point is SNF with comfort care measures. If patient improves daughter would take her home, if continues to decline would qualify for Hospice then. - Comfort care instituted at this time. Morphine and Ativan PRN for comfort. - Her weight is down to 121 from 126 on admission - will continue to monitor. (3) DNR (do not resuscitate) Status and Disposition: Inpatient. Comfort Care with plan for SNF for end of life care.
--- NOTE | 2018-02-19 13:51 | PN ---
Progress Note - Progress Note Date of Service: 02/19/18 Note: Appreciate hospitalist. neurologist and tunneller input. As indicated in my initial assessment, the patient does seem to be embarking on a very steep decline, and if she were to continue to refuse food and drink, she would not be expected to survive very long. I note she has now taken nothing of nutritional value for 10 days, and has lost 5 lbs. since admission,from 126 to 121 lb. On that basis, I would suggest that the patient be referred for hospice services after discharge and placement in a SNF, with the understanding that if she once again begins to eat, we might have to discharge her from hospice services. She could be brought onto hospice services with a primary diagnosis of anorexia and weight loss. Thanks.
[2018-02-19] MEDS: LORazepam TAB(*) 1 MG SL PRN (20:30)
[2018-02-19] MEDS: QUEtiapine TAB* 25 MG PO SCH (21:57)
[2018-02-20] MEDS: Morphine ORAL CONCENTRATE* 5 MG/0.25 ML ORAL.SYRIN SL PRN (03:31)
[2018-02-20] MEDS: Simethicone LIQ* 40 MG/0.6 ML UD ORAL SYRINGE PO SCH (08:55)
[2018-02-20] MEDS: Divalproex Sprinkle CAP* 125 MG PO SCH ×2 (08:55→16:46)
[2018-02-20] MEDS: LORAZEPAM 2 MG/ML PO SCH ×2 (08:55→20:58)
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
--- NOTE | 2018-02-20 14:22 | PN ---
Subjective Date of Service: 02/20/18 Interval History: HOSPITALIST PROGRESS NOTE Patient seen and examined at bedside. Care reviewed and d/w Dia Love RN. She is not responsive, appears to be comfortable. PO intake continues to be 0. Family History: Unchanged from Admission Social History: Unchanged from Admission Past Medical History: Unchanged from Admission Objective Active Medications: Acetaminophen (Tylenol Tab*) 650 mg PO Q4H PRN PRN Reason: FEVER/PAIN Last Admin: 02/15/18 08:54 Dose: 650 mg Lorazepam (Ativan Tab(*)) 1 mg SL Q6H PRN PRN Reason: ANXIETY Last Admin: 02/19/18 20:30 Dose: 1 mg Lorazepam (Lorazepam Oral.Sammie Bulk Bot*) 2 mg PO 0900,2100 [facility] Last Admin: 02/20/18 08:55 Dose: 2 mg Morphine Sulfate (Morphine Oral Concentrate*) 5 mg SL Q2H PRN PRN Reason: PAIN Last Admin: 02/20/18 03:31 Dose: 5 mg Quetiapine Fumarate (Seroquel Tab*) 25 mg PO BEDTIME [facility] Last Admin: 02/19/18 21:57 Dose: 25 mg Simethicone (Mylicon Liq*) 40 mg PO DAILY [facility] Last Admin: 02/20/18 08:55 Dose: 40 mg Vital Signs - 8 hr 02/20/18 08:00 Respiratory 18 Rate Oxygen Devices in Use Now: None Appearance: Elderly lady lying in bed, appears to be comfortable Eyes: No Scleral Icterus Ears/Nose/Mouth/Throat: - - Dry MM Neck: Trachea Midline Respiratory: Symmetrical Chest Expansion and Respiratory Effort, Clear to Auscultation Cardiovascular: RRR - Normal S1 and S2 Neurological: - - Unresponsive Result Diagrams: 02/14/18 06:07 02/19/18 14:04 Assess/Plan/Problems-Billing Ms Rousseau is a 72 yo F who has a h/o advanced dementia, CVA about 10 years ago and a h/o seizures who presented to the ER after having several seizures at home after not taking her antiepileptics for several days with decreased oral intake and diarrhea. - Patient Problems (1) Seizures Comment: - On day of admission pt with presumed status epilepticus given recurrent seizures at home. Pt had EEG that was abnormal with slowing and sharp waves concerning for epileptic foci. - Not taking any food PO, unable to take meds crushed in apple sauce anymore, as it just sits in her mouth. (2) Dementia Comment: - Pt reportedly has had a significant decline in her functional status per her daughter over the last 6 months, but more acutely over the 5 days prior to admission. - Hospice evaluation appreciated - does not meet criteria for Hospice admission at this time, but may if she continues to decline. - D/w daughter - not interested in any invasive measures (including GI evaluation with EGD) - plan at this point is SNF with comfort care measures. If patient improves daughter would take her home, if continues to decline would qualify for Hospice then. - Comfort care instituted at this time. Morphine and Ativan PRN for comfort. - Her weight is down to 121 from 126 on admission - will continue to monitor. (3) DNR (do not resuscitate) Status and Disposition: Inpatient. Anticipate d/c to [facility] with Hospice in AM.
[2018-02-20] MEDS: QUEtiapine TAB* 25 MG PO SCH (20:58)
[2018-02-21] MEDS: Simethicone LIQ* 40 MG/0.6 ML UD ORAL SYRINGE PO SCH (07:43)
[2018-02-21] MEDS: LORAZEPAM 2 MG/ML PO SCH (07:43)
[2018-02-21] MEDS: Morphine ORAL CONCENTRATE* 5 MG/0.25 ML ORAL.SYRIN SL PRN ×3 (08:08→14:27)
== END 2018-02-21 14:45 | disposition home health service (06) | DRG 101 ==
LOC: ED 18:14 → MED 20:38
PROVIDERS: ADMIT Hospitalist; ATTEND Internal Medicine
PROC: 4A10X4Z Monitoring of Central Nervous Electrical Activity, External Approach (ICD-10-PCS; principal; 2018-02-14)
DX: G40.901 Epilepsy, unspecified, not intractable, with status epilepticus (principal); E46 Unspecified protein-calorie malnutrition; F03.90 Unspecified dementia, unspecified severity, without behavioral disturbance, psychotic disturbance, mood disturbance, and anxiety; F41.0 Panic disorder [episodic paroxysmal anxiety]; R19.7 Diarrhea, unspecified; E78.5 Hyperlipidemia, unspecified; F32.9 Major depressive disorder, single episode, unspecified; M19.90 Unspecified osteoarthritis, unspecified site; F48.2 Pseudobulbar affect; R54 Age-related physical debility; Z66 Do not resuscitate; R63.0 Anorexia; R62.7 Adult failure to thrive; I69.320 Aphasia following cerebral infarction; Z68.20 Body mass index [BMI] 20.0-20.9, adult; Z90.89 Acquired absence of other organs; Z93.0 Tracheostomy status; Z81.8 Family history of other mental and behavioral disorders; Z51.5 Encounter for palliative care
CPT/HCPCS: 36415; 70450; 71045; 74177; 80048; 80053; 80164; 80175; 81003; 81015; 85025; 85610; 87086; 95816; 99283; A9270-GY; J1644; J2060; J3480; Q9967